=== PATIENT | female | born 1960 | race Caucasian/White ===

== ENCOUNTER → 2020-02-29 | Outpatient (CLI) | payer OTHER ==
[2020-02-29 13:42] LABS: Basophils # (A) 0.1 k/uL (0-0.2); Basophils % (A) 1 %; Eosinophils # (A) 0.2 k/uL (0-0.7); Eosinophils % (A) 3 %; HCT 42.6 % (34.0-46.0); HGB 14.4 gm/dL (11.4-16.0); Lymphocytes # (A) 1.4 k/uL (1.0-4.8); Lymphocytes % (A) 20 %; MCH 30.7 pg (25.0-35.0); MCHC 33.9 g/dL (31.0-37.0); MCV 90.5 fL (80.0-100.0); Mean Platelet Volume 7.1; Monocytes # (A) 0.3 k/uL (0-1.0); Monocytes % (A) 4 %; Neutrophils # (A) 5.1 k/uL (1.3-7.7); Neutrophils % (A) 70 %; Platelet Count 253 k/uL (150-450); RDW 12.5 % (11.5-15.5); WBC 7.2 k/uL (3.8-10.6)
[2020-02-29 23:48] LABS: Protein, Total 7.2 g/dL (6.2-8.2)
[2020-02-29 23:54] LABS: African American GFR (CKD) 110.7 (60.0-200.0); Albumin 4.7 g/dL (3.80-4.90); Albumin/Globulin Ratio 1.96 (1.60-3.17); Anion Gap 8.4 mmol/L (4.00-12.00); BUN/Creat Ratio 32.86 Ratio (12.00-20.00); Calcium 10.1 mg/dL (8.7-10.3); Carbon Dioxide 28.6 mmol/L (21.6-31.8); Globulin 2.4 g/dL (1.6-3.3); Non-African American GFR(CKD) 95.5 (60.0-200.0); Potassium 3.9 mmol/L (3.5-5.5); Total Bilirubin 0.8 mg/dL (0.3-1.2); Total Protein 7.1 g/dL (6.2-8.2)
[2020-03-01 00:03] LABS: Thyroid Peroxidase Antibodies 64.8 U/mL (0.0-60.0)
[2020-03-01 01:09] LABS: Immunoglobulin E 2.36 IU/mL (0.00-114.00)
[2020-03-01 01:28] LABS: Peanut IgE <0.10 kU/L
[2020-03-01 01:29] LABS: Dog Dander IgE <0.10 kU/L; Egg White IgE <0.10 kU/L
[2020-03-01 01:30] LABS: Cat Epith & Dander IgE <0.10 kU/L; Codfish IgE <0.10 kU/L
[2020-03-01 01:31] LABS: Soybean IgE <0.10 kU/L; Walnut IgE (Food) <0.10 kU/L
[2020-03-01 10:14] LABS: Protein C Antigen 120 % (72-160)
[2020-03-01 13:54] LABS: Almond IgE <0.10 kU/L (<0.10); Almond IgE Class CLASS 0; Cashew IgE <0.10 kU/L (<0.10); Cashew IgE Class CLASS 0; Pecan IgE <0.10 kU/L (<0.10); Pecan IgE Class CLASS 0; Pistachio IgE Class CLASS 0
[2020-03-01 13:55] LABS: Cockroach IgE <0.10 kU/L (<0.10); Dermato. Pteronyssinus Class CLASS 0; Dermato. Pteronyssinus IgE <0.10 kU/L (<0.10); Dermato. farinae IgE <0.10 kU/L (<0.10); Dermato. farinae IgE Class CLASS 0; House Dust (Greer) IgE <0.10 kU/L (<0.10); House Dust (Greer) IgE Class CLASS 0; House Dust (H-S) IgE <0.10 kU/L (<0.10); House Dust (H-S) IgE Class CLASS 0
[2020-03-01 13:55] LABS: Albumin 4.36 g/dL (3.80-4.90); Gamma Globulin 1.16 g/dL (0.70-1.50)
== END | disposition home or self-care (01) ==
LOC: LABWHC1 12:30
PROVIDERS: ATTEND Allergy & Immunology
DX: T78.3XXA Angioneurotic edema, initial encounter (principal)
CPT/HCPCS: 36415; 80053; 82784; 82785; 84165; 84443; 85025; 85302; 85303; 86003; 86038; 86160; 86162; 86376; 86800